=== PATIENT | female | born 1960 | race Caucasian/White ===

== ENCOUNTER 2021-10-08 10:18 | Day surgery (SDC) | payer MEDICARE ==
[2013-03-17 14:32] VITALS: BP 125/71
[2021-10-08] MEDS ORDERED: Depo-Medrol 40 MG/ML IM ONE (10:19)
[2021-10-08] MEDS ORDERED: Sodium Chloride 0.9(Preservative Free) 10 ML IJ ONE (10:19)
[2021-10-08] MEDS ORDERED: DIPRIVAN 200 MG/20 ML IV ONE (12:41)
[2021-10-08] MEDS ORDERED: Lactated Ringers 1,000 ML IV ONE (12:55)
--- NOTE | 2021-10-08 14:02 | XRAY ---
Indication: Left L4-S1 transforaminal MARÍA ELENA. Intraoperative fluoroscopy provided for 38 seconds. 5 digital spot images submitted for interpretation demonstrates posterior needle tips projecting over the expected left L4 and L5 nerve roots. Small amount of contrast injected for needle tip placement. Correlate with intraoperative findings/report.
--- NOTE | 2021-10-08 14:41 | XRAY ---
38 seconds fluoroscopy time in surgery for left L4-S1 transforaminal MARÍA ELENA.
== END 2021-10-08 13:11 | disposition home or self-care (01) ==
LOC: SDC-PAIN 10:18
PROVIDERS: ATTEND Psychiatry & Neurology Pain Medicine
DX: M54.16 Radiculopathy, lumbar region (principal); Z79.899 Other long term (current) drug therapy
CPT/HCPCS: 64483; 64484; 72100; 77003; J1030; J2704; Q9966

== ENCOUNTER 2022-11-25 11:48 | Day surgery (SDC) | payer MEDICARE ==
[2013-03-17 14:32] VITALS: BP 125/71
[2022-11-25] MEDS ORDERED: Sodium Chloride 0.9(Preservative Free) 10 ML IJ ONE (11:49)
[2022-11-25] MEDS ORDERED: Depo-Medrol 40 MG/ML IM ONE (11:49)
[2022-11-25] MEDS ORDERED: DIPRIVAN 200 MG/20 ML IV ONE (13:26)
[2022-11-25] MEDS ORDERED: Lactated Ringers 1,000 ML IV ONE (14:18)
--- NOTE | 2022-11-25 23:30 | XRAY ---
Indication: Left L4-S1 transforaminal MARÍA ELENA. Intraoperative fluoroscopy provided for 30 seconds. 6 digital spot image submitted for interpretation demonstrates posterior needle tip projecting over the left L4 and L5 nerve roots. Small amount of contrast injected for needle tip placement. Correlate with intraoperative findings/report.
--- NOTE | 2022-11-26 07:16 | XRAY ---
30 seconds of fluoroscopy was used in surgery for a left L4-S1 transforaminal MARÍA ELENA.
== END 2022-11-25 13:55 | disposition home or self-care (01) ==
LOC: SDC-PAIN 11:48
PROVIDERS: ATTEND Psychiatry & Neurology Pain Medicine
DX: M54.16 Radiculopathy, lumbar region (principal); Z79.899 Other long term (current) drug therapy
CPT/HCPCS: 64483; 64484; 72100; 77003; J1030; J2704; Q9966

== ENCOUNTER 2023-11-10 13:27 | Day surgery (SDC) | payer MEDICARE ==
[2013-03-17 14:32] VITALS: BP 125/71
[2023-11-10] MEDS ORDERED: Sodium Chloride 0.9(Preservative Free) 10 ML IJ ONE (13:28)
[2023-11-10] MEDS ORDERED: Decadron 4 MG INJ IV ONE (13:28)
[2023-11-10] MEDS ORDERED: Versed 2 MG/2 ML Injection ONE (14:35)
[2023-11-10] MEDS ORDERED: DIPRIVAN 200 MG/20 ML IV ONE (14:56)
[2023-11-10] MEDS ORDERED: MORPHINE SULFATE 2 MG INJ ONE (15:18)
[2023-11-10] MEDS ORDERED: Lactated Ringers 1,000 ML IV ONE (15:52)
--- NOTE | 2023-11-10 16:48 | XRAY ---
Indication: Left L4-S1 transforaminal MARÍA ELENA. Intraoperative fluoroscopy provided for 23 seconds. 4 digital spot image submitted for interpretation demonstrates posterior needle tips projecting over left L4 and L5 nerve roots. Small amount of contrast injected for needle tip placement. Correlate with intraoperative findings/report.
--- NOTE | 2023-11-11 14:47 | XRAY ---
23 seconds of fluoroscopy was used in surgery for a left L4-S1 transforaminal MARÍA ELENA.
== END 2023-11-10 15:48 | disposition home or self-care (01) ==
LOC: SDC-PAIN 13:27
PROVIDERS: ATTEND Psychiatry & Neurology Pain Medicine
DX: M54.16 Radiculopathy, lumbar region (principal)
CPT/HCPCS: 64483; 64484; 72100; 77003; J1100; J2250; J2270; J2704; Q9966